=== PATIENT | female | born 1985 | race African-American/Black ===

== ENCOUNTER 2020-07-05 13:08 | Emergency (ER) | payer SELFPAY | END 2020-07-05 14:00 | disposition home or self-care (01) | LOC: CSHERS 13:08 | DX: K03.81 Cracked tooth (principal) | CPT/HCPCS: 99282 ==

== ENCOUNTER 2020-07-13 17:21 | Emergency (ER) | payer SELFPAY | END 2020-07-13 19:23 | disposition home or self-care (01) | LOC: CSHERS 17:21 | DX: S93.402A Sprain of unspecified ligament of left ankle, initial encounter (principal); X50.9XXA Other and unspecified overexertion or strenuous movements or postures, initial encounter ==

== ENCOUNTER 2024-04-24 09:19 | Emergency (ER) | payer OTHER, SELFPAY | END 2024-04-24 10:37 | disposition home or self-care (01) | LOC: CSHERS 09:19 | DX: B34.9 Viral infection, unspecified (principal) | CPT/HCPCS: 87428; 99283 ==